=== PATIENT | female | born 1975 | race Caucasian/White ===

== ENCOUNTER 2016-03-12 21:27 | Emergency (ER) | payer BC, OTHER ==
[2016-03-12 21:41] VITALS: RESP 20
[2016-03-12] MEDS ORDERED: ONDANSETRON 4 MG/2 ML VIAL ONE (22:06)
[2016-03-12] MEDS ORDERED: NS 1,000 ML IV ONE ×2 (22:36→23:43)
--- NOTE | 2016-03-12 22:36 | EDPHY ---
H & P Time Seen by Provider: 03/12/16 22:09 HPI/ROS: CHIEF COMPLAINT: Vomiting, diarrhea HISTORY OF PRESENT ILLNESS: 41-year-old female presents to the emergency department by private vehicle complaining of multiple episodes of vomiting and diarrhea since 9 o'clock this morning. Patient states that she slept fine last night when she woke up she had coffee and was feeling normal and then around 9 o 'clock she began feeling sick and has vomited multiple times since that time. She also developed 3 or 4 episodes of watery diarrhea this afternoon. No blood in her emesis or her stool. Denies melena. No known ill contacts. No known contaminated food or water. No fevers or chills. No chest pain or difficulty breathing. No abdominal pain other than some mild abdominal cramping. No back pain. No urinary symptoms. REVIEW OF SYSTEMS: Constitutional: No fever, no chills. Eyes: No double or blurry vision. ENT: No sore throat. Respiratory: No cough, no shortness of breath. Cardiac: No chest pain. Gastrointestinal: As above Genitourinary: No dysuria. Musculoskeletal: No neck or back pain. Skin: No rashes. Neurological: No headache. Past Medical/Surgical History: Gestational diabetes now borderline diabetic, autoimmune disorder, depression, anxiety Social History: Smoking Status: Never smoked Physical Exam: General Appearance: Alert, no distress. 148/88, afebrile and nontoxic- appearing. 96% on room air. Eyes: Pupils equal and round. Extraocular motions are all intact. ENT: Mouth: Mucous membranes dry. Respiratory: No wheezing, rhonchi, or rales, lungs are clear to auscultation. Cardiovascular: Regular rate and rhythm. Gastrointestinal: Abdomen is soft and nontender, no masses, no rebound or guarding, bowel sounds normal. No CVA tenderness bilaterally. Neurological: Alert and oriented x 3, cranial nerves II through XII grossly intact Skin: Warm and dry, no rashes. Musculoskeletal: Nontender to palpate along the cervical, thoracic or lumbar spine. Neck is supple. Extremities: Full range of motion and no peripheral edema. Psychiatric: Patient is oriented X 3, there is no agitation. Constitutional: Initial Vital Signs Temperature (C) 36.8 C 03/12/16 21:39 Heart Rate 87 03/12/16 21:39 Respiratory Rate 20 03/12/16 21:39 Blood Pressure 148/88 H 03/12/16 21:39 O2 Sat (%) 96 03/12/16 21:39 O2 Delivery Mode Room Air Allergies/Adverse Reactions: Penicillins Allergy (Verified 03/12/16 21:39) Home Medications: Medication Instructions Recorded Effexor 03/12/16 Synthroid 03/12/16 Medical Decision Making ED Course/Re-evaluation: 41-year-old female presents to the emergency department with multiple episodes of vomiting and diarrhea. Patient had IV established and IV fluids were given. Patient was also given 4 mg of Zofran IV. Patient was also given 1 mg of Ativan IV. She was feeling much better. Upon discharge she was able to drink water. She was comfortable being discharged home. Her laboratory studies were reviewed and revealed no acute abnormality. This was reviewed with the patient. Differential Diagnosis: Including but not limited to viral gastroenteritis, dehydration, acute appendicitis, viral syndrome - Data Points Laboratory Results: Laboratory Results 03/12/16 22:30 03/12/16 22:30 03/12/16 22:30 WBC 9.91 H 10^3/uL (3.80-9.50) RBC 4.33 10^6/uL (4.18-5.33) Hgb 15.2 g/dL (12.6-16.3) Hct 42.6 % (38.0-47.0) MCV 98.4 fL (81.5-99.8) MCH 35.1 H pg (27.9-34.1) MCHC 35.7 g/dL (32.4-36.7) RDW 12.2 % (11.5-15.2) Plt Count 228 10^3/uL (150-400) MPV 9.4 fL (8.7-11.7) Neut % (Auto) 93.3 H % (39.3-74.2) Lymph % (Auto) 2.4 L % (15.0-45.0) [place] % (Auto) 3.1 L % (4.5-13.0) Eos % (Auto) 0.5 L % (0.6-7.6) Baso % (Auto) 0.3 % (0.3-1.7) Nucleat RBC Rel Count 0.0 % (0.0-0.2) Absolute Neuts (auto) 9.24 H 10^3/uL (1.70-6.50) Absolute Lymphs (auto) 0.24 L 10^3/uL (1.00-3.00) Absolute Monos (auto) 0.31 10^3/uL (0.30-0.80) Absolute Eos (auto) 0.05 10^3/uL (0.03-0.40) Absolute Basos (auto) 0.03 10^3/uL (0.02-0.10) Absolute Nucleated RBC 0.00 10^3/uL (0-0.01) Immature Gran % 0.4 % (0.0-1.1) Immature Gran # 0.04 10^3/uL (0.00-0.10) Sodium 142 mEq/L (134-144) Potassium 4.7 mEq/L (3.5-5.2) Chloride 105 mEq/L (97-110) Carbon Dioxide 24 mEq/l (22-31) Anion Gap 13 mEq/L (8-16) BUN 18 mg/dL (7-23) Creatinine 0.6 mg/dL (0.6-1.0) Estimated GFR > 60 Glucose 105 H mg/dL (70-100) Calcium 9.3 mg/dL (8.5-10.4) Beta HCG, Qual NEGATIVE Medications Given: Discontinued Medications Sodium Chloride (Ns) 1,000 mls @ 0 mls/hr IV ONCE ONE PRN Reason: Wide Open Stop: 03/12/16 22:37 Last Admin: 03/12/16 21:42 Dose: 1,000 mls Sodium Chloride (Ns) 1,000 mls @ 0 mls/hr IV ONCE ONE PRN Reason: Wide Open Stop: 03/12/16 23:44 Last Admin: 03/12/16 23:16 Dose: 1,000 mls Lorazepam (Ativan Injection) 1 mg IVP EDNOW ONE Stop: 03/12/16 23:17 Last Admin: 03/12/16 23:16 Dose: 1 mg Ondansetron HCl (Zofran) 4 mg IVP EDNOW ONE Stop: 03/12/16 22:38 Last Admin: 03/12/16 21:43 Dose: 4 mg Ondansetron HCl (Zofran Odt 4 Mg Prepack#2) 1 btl TAKEAIYANA MAYNARDW ONE Stop: 03/13/16 00:17 Last Admin: 03/13/16 00:32 Dose: 1 btl Departure - Departure Disposition: Home, Routine, Self-Care Clinical Impression: Gastroenteritis Condition: Good Instructions: Gastroenteritis (ED) Additional Instructions: Clear liquids and slowly advance diet as tolerated. Zofran as needed for nausea. Return to the emergency department if you develop recurring abdominal pain, vomiting, fever, or if you feel worse in any way. Referrals: Dalia Lares MD [Primary Care Provider] - 1 day, if not improved
[2016-03-12] MEDS ORDERED: ONDANSETRON 4 MG/2 ML VIAL IVP ONE (22:37)
[2016-03-12 22:41] LABS: % IMMATURE GRANULYOCYTES 0.4 % (0.0-1.1); ABSOLUTE IMMATURE GRANULOCYTES 0.04 10^3/uL (0.00-0.10); ADD DIFF? NO; ADD MORPH? NO; ADD SCAN? NO; ATYPICAL LYMPHOCYTE FLAG 0 (0-99); FRAGMENT RBC FLAG 0 (0-99); HEMATOCRIT 42.6 % (38.0-47.0); HEMOGLOBIN 15.2 g/dL (12.6-16.3); LEFT SHIFT FLG 10 (0-99); LIPEMIA HEMOLYSIS FLAG 90 (0-99); MEAN CELL HEMOGLOBIN 35.1 pg (27.9-34.1); MEAN CELL HEMOGLOBIN CONCENTR. 35.7 g/dL (32.4-36.7); MEAN CELL VOLUME 98.4 fL (81.5-99.8); MEAN PLATELET VOLUME 9.4 fL (8.7-11.7); PLATELET CLUMPS FLAG 0 (0-99); PLATELET COUNT 228 10^3/uL (150-400); RED BLOOD CELL COUNT 4.33 10^6/uL (4.18-5.33); RED CELL DISTRIBUTION WIDTH 12.2 % (11.5-15.2)
[2016-03-12 22:49] LABS: ANION GAP 13 mEq/L (8-16); CALCIUM 9.3 mg/dL (8.5-10.4); CARBON DIOXIDE 24 mEq/l (22-31); CHLORIDE 105 mEq/L (97-110); CREATININE 0.6 mg/dL (0.6-1.0); GLOMERULAR FILTRATION RATE > 60; GLUCOSE 105 mg/dL (70-100); POTASSIUM 4.7 mEq/L (3.5-5.2); SODIUM 142 mEq/L (134-144)
[2016-03-12] MEDS ORDERED: LORazepam 2 MG/ML INJ IVP ONE (23:16)
[2016-03-12] MEDS ORDERED: LORazepam 2 MG/ML INJ ONE (23:17)
[2016-03-13] MEDS ORDERED: ONDANSETRON 4MG PREPACK#2 BTL TAKEHOME ONE (00:16)
[2016-03-13 00:36] VITALS: BP 119/67; PULSE 85; TEMP 97.9; O2SAT 97
== END 2016-03-13 00:38 | disposition home or self-care (01) ==
DX: K52.9 Noninfective gastroenteritis and colitis, unspecified (principal)
CPT/HCPCS: 96374; J2405

== ENCOUNTER 2016-06-04 13:52 | Emergency (ER) | payer OTHER ==
[2016-06-04 14:23] VITALS: BP 125/62; PULSE 89; RESP 16; TEMP 98.4; O2SAT 97
[2016-06-04] MEDS ORDERED: AZITHROMYCIN 250 MG TAB PO ONE (15:02)
--- NOTE | 2016-06-04 15:06 | UCPHY ---
H & P Patient Type: Established Chief Complaint Nursing Narrative: fever/severe sore throat/swollen glands/LIU since Sunday (06/02/16) morning. Time Seen by Provider: 06/04/16 14:57 HPI/ROS: CHIEF COMPLAINT: Sore throat, fever HISTORY OF PRESENT ILLNESS: Patient is a healthy 41-year-old female who comes to the Urgent Care complaining of a sore throat as well as a fever for the last 3 days. She is planning to leave [place] and wanted to come and get checked out. None for family is sick. No runny nose, no cough, no shortness of breath. REVIEW OF SYSTEMS: Constitutional: denies: chills, fever, recent illness, recent injury EENTM: See HPI Respiratory: denies: cough, shortness of breath Cardiac: denies: chest pain, irregular heart rate, lightheadedness, palpitations Gastrointestinal/Abdominal: denies: abdominal pain, diarrhea, nausea, vomiting, blood streaked stools Genitourinary: denies: dysuria, frequency, hematuria, pain Musculoskeletal: denies: joint pain, muscle pain Skin: denies: lesions, rash, jaundice, bruising Neurological: denies: headache, numbness, paresthesia, tingling, dizziness, weakness Hematologic/Lymphatic: denies: blood clots, easy bleeding, easy bruising Immunologic/allergic: denies: HIV/AIDS, transplant EXAM: GENERAL: Well-appearing, well-nourished and in no acute distress. HEAD: Atraumatic, normocephalic. EYES: Pupils equal round and reactive to light, extraocular movements intact, sclera anicteric, conjunctiva are normal. ENT: erythematous pharynx with tonsils that her exudative in enlarged, TMs normal, nares patent, Moist mucous membranes. NECK: Normal range of motion, supple without lymphadenopathy or JVD. LUNGS: Breath sounds clear to auscultation bilaterally and equal. No wheezes rales or rhonchi. HEART: Regular rate and rhythm without murmurs, rubs or gallops. ABDOMEN: Soft, nontender, normoactive bowel sounds. No guarding, no rebound. No masses appreciated. BACK: No CVA tenderness, no spinal tenderness, step-offs or deformities EXTREMITIES: Normal range of motion, no pitting or edema. No clubbing or cyanosis. NEUROLOGICAL: Cranial nerves II through XII grossly intact. Normal speech, normal gait. 5/5 strength, normal movement in all extremities, normal sensation PSYCH: Normal mood, normal affect. SKIN: Warm, dry, normal turgor, no visible rashes or lesions. Source: Patient Exam Limitations: No limitations - Personal History LMP (Females 10-55): 15-21 Days Ago - Medical/Surgical History Hx Asthma: No Hx Chronic Respiratory Disease: No Hx Diabetes: Yes Hx Cardiac Disease: No Hx Renal Disease: No Hx Cirrhosis: No Hx Alcoholism: No Hx Splenectomy or Spleen Trauma: No Other PMH: none - Family History Significant Family History: No pertinent family hx - Social History Smoking Status: Never smoked Alcohol Use: Sober Drug Use: None Constitutional: Initial Vital Signs Temperature (C) 36.9 C 06/04/16 14:21 Heart Rate 89 06/04/16 14:21 Respiratory Rate 16 06/04/16 14:21 Blood Pressure 125/62 H 06/04/16 14:21 O2 Sat (%) 97 06/04/16 14:21 O2 Delivery Mode Room Air Allergies/Adverse Reactions: Penicillins Allergy (Verified 06/04/16 14:21) Home Medications: Medication Instructions Recorded Effexor 03/12/16 Synthroid 03/12/16 Cytomel 06/04/16 Medical Decision Making ED Course/Re-evaluation: The patient has symptoms consistent with strep throat. Her initial test is negative but it has not been very accurate this year. I will go ahead and treat her with azithromycin. She is grateful and agrees with this plan. She declines further workup or testing this time. Differential Diagnosis: Partial list of the Differential diagnosis considered include but were not limited to; strep throat, pharyngitis, upper respiratory tract infection and although unlikely based on the history and physical exam, I also considered mononucleosis, meningitis, sepsis, abscess. I discussed these differential diagnoses and the plan with the patient as well as the usual and expected course. The patient understands that the diagnosis is provisional and that in medicine we are not always correct and that further workup is often warranted. Usual and customary warnings were given. All of the patient's questions were answered. The patient was instructed to return to the emergency department should the symptoms at all worsen or return, otherwise to followup with the physician as we discussed. - Data Points Laboratory Results: 06/04/16 06/04/16 Unknown 14:20 Group A Strep Screen NEGATIVE (NEGATIVE) Group A Strep DNA Pending Departure - Departure Disposition: Home, Routine, Self-Care Clinical Impression: Pharyngitis Qualifiers: Pharyngitis/tonsillitis etiology: unspecified etiology Qualified Code(s): J02.9 - Acute pharyngitis, unspecified Condition: Fair Instructions: Pharyngitis (ED) Referrals: NONE *PRIMARY CARE P,. [Primary Care Provider] - As per Instructions Kavita Vines MD [Medical Doctor] - As per Instructions - PQRS PQRS Measurement: Not applicable
== END 2016-06-04 15:20 | disposition home or self-care (01) ==
LOC: CED 13:52
DX: J02.9 Acute pharyngitis, unspecified (principal)
CPT/HCPCS: 87880-PO; 99214-PO; G0463-PO

== ENCOUNTER → 2017-01-02 | Outpatient (CLI) | payer OTHER | LOC: CIMAGING 12:32 | PROVIDERS: ATTEND Obstetrics & Gynecology | DX: Z12.31 Encounter for screening mammogram for malignant neoplasm of breast (principal) | CPT/HCPCS: G0202 ==

== ENCOUNTER 2017-03-06 20:31 | Observation (INO) | payer OTHER ==
--- NOTE | 2017-03-06 21:06 | EDPHY ---
H & P Stated Complaint: nausea chills r lq abd pain Source: Patient Exam Limitations: No limitations - Personal History LMP (Females 10-55): Now Current Tetanus/Diphtheria Vaccine: Unsure Current Tetanus Diphtheria and Acellular Pertussis (TDAP): Unsure - Medical/Surgical History Hx Asthma: No Hx Chronic Respiratory Disease: No Hx Diabetes: No Hx Cardiac Disease: No Hx Renal Disease: No Hx Cirrhosis: No Hx Alcoholism: No Hx HIV/AIDS: No Hx Splenectomy or Spleen Trauma: No Other PMH: none - Social History Smoking Status: Never smoked Time Seen by Provider: 03/06/17 21:05 HPI/ROS: HPI: This is a 42-year-old female presents with Chief Complaint: nausea chills r lq abd pain Location: Right lower quadrant Quality: Pain Duration: 6 hr Signs and Symptoms: no fever, + nausea, no vomiting, no hematemesis, no blood in stool, no abdominal bloating, no diarrhea, no back pain, no urinary symptoms , no vaginal bleeding/discharge, no indigestion, no chest pain, no shortness of breath Timing: Sudden Severity: Severe Context: Patient is generally healthy, currently on menses day 2, presents with sudden onset of nausea, chills, and right lower quadrant abdominal pain approximately 3 hr prior to arrival that is constant, nonradiating in nature. She reports that she also feels bloated. Denies fever/diarrhea/vomiting/ urinary symptoms. She is concerned that she may have appendicitis. Patient is followed by [facility] and has yearly pelvic and Pap smears that are normal per patient. No prior history of ovarian cyst/torsion. Currently on menses. Modifying Factors: None Comment: ROS: see HPI Constitutional: No fever, no chills, no weight loss Eyes: No blurred vision Respiratory: No shortness of breath, no cough Cardiovascular: No chest pain, no palpitations Gastrointestinal: +nausea, no vomiting, no diarrhea, no hematemesis, no blood in stool Genitourinary: No dysuria, no blood in urine Extremities: No myalgias, no edema Neurologic: No weakness, no numbness Skin: No rashes, no petechiae Hematologic: No bruising, no bleeding MEDICAL/SURGICAL/SOCIAL HISTORY: Medical history: Generally healthy. Does not take any regular medications. Surgical history: Denies Social history: . CONSTITUTIONAL: Extremely pleasant well-appearing adult white female, awake and alert, no obvious distress HEENT: Atraumatic and normocephalic, PERRL, EOMI. Tympanic membranes clear. Oropharynx clear, no exudate and moist pink mucosa. Airway patent. No lymphadenopathy. No meningismus. Cardiovascular: Normal S1/S2, regular rate, regular rhythm, without murmur rub or gallop. PULMONARY/CHEST: Symmetrical and nontender. Clear to auscultation bilaterally. Good air movement. No accessory muscle usage. ABDOMEN: Soft, nondistended, moderate right lower quadrant tenderness, no rebound, +guarding, no peritoneal signs, no masses or organomegaly. No CVAT. Hyperactive bowel sounds x4. EXTREMITIES: 2/2 pulses, strength 5/5, no deformities, no clubbing, no cyanosis or edema. NEUROLOGICAL: no focal neuro deficits. GCS 15. SKIN: Warm and dry, no erythema. no rash. Good capillary refill. (Doris Burgos) Constitutional: Initial Vital Signs Temperature (C) 37.2 C 03/06/17 20:44 Heart Rate 81 03/06/17 20:44 Respiratory Rate 18 03/06/17 20:44 Blood Pressure 144/86 H 03/06/17 20:44 O2 Sat (%) 98 03/06/17 20:44 O2 Delivery Mode Simple Mask O2 (L/minute) 8 Allergies/Adverse Reactions: Penicillins Allergy (Verified 03/07/17 11:01) Rash Home Medications: Medication Instructions Recorded Levothyroxine [Synthroid 100 mcg 100 mcg PO DAILY #0 03/12/16 (*)] Venlafaxine Xr [Effexor Xr 75MG 150 mg PO DAILY #0 03/12/16 (*)] Liothyronine Sodium [Cytomel 5 mcg 10 mcg PO DAILY #0 06/04/16 (*)] Ibuprofen [Motrin (*)] 600 mg PO Q6H #40 tab 03/07/17 oxyCODONE/APAP 5/325 [Percocet 1 - 2 tab PO Q4 PRN #20 tab 03/07/17 5/325 (*)] Medical Decision Making ED Course/Re-evaluation: Labs, IV fluids, IV medication, CT abdomen and pelvis scan ordered NPO status. 1 L IV fluids and IV morphine 4 mg x2 given Vital signs reviewed upon arrival and unremarkable. Afebrile no systemic signs. 2138: Labs reviewed and showed a white count of 14 K, no lactic acidosis/acute kidney injury/electrolyte imbalance/transaminitis UA shows blood in RBC but no signs of infection 2220: Called by Radiology who advised that CT abdomen and pelvis scan shows acute appendicitis base has thickened wall measuring 11 mm. Penicillin allergy was simply a rash. IV Invanz given. Last meal was at lunch time. General surgery consult, Dr. Young, who kindly agrees to take patient to the OR for a laparoscopic appendectomy. This patient was seen under the supervision of my secondary supervising physician. I evaluated care for this patient independently. Discussed this patient with Dr. Amaro who did not see the patient. Patient's presentation, labs/imaging, treatment and plan of care were discussed with secondary supervising physician. (Doris Burgos) Differential Diagnosis: Abdominal pain in a female including but not limited to ovarian cyst, pelvic inflammatory disease, ovarian torsion, urinary tract infection, and appendicitis. (Doris Burgos) Other Provider: The patient was evaluated and managed by the Physician Air Drill Operator. I discussed the patient's presentation and course with the physician press assistant and agree with the evaluation. My co-signature indicates that I have reviewed this chart and I agree with the findings and plan of care as documented. I am the secondary supervising physician. (Zhane Amaro) - Data Points Laboratory Results: Laboratory Results 03/06/17 21:10 03/06/17 21:10 Medications Given: Discontinued Medications Bupivacaine HCl (Sensorcaine 0.5% Vial) Confirm Administered Dose 30 ml .ROUTE .STK-MED ONE Stop: 03/06/17 23:16 Last Admin: 03/07/17 00:38 Dose: 20 ml Diphenhydramine HCl (Benadryl) 25 - 50 mg PO Q3 PRN PRN Reason: ITCHING Stop: 09/03/17 02:54 Last Admin: 03/07/17 03:31 Dose: 50 mg Ertapenem (Invanz) 1 gm IM EDNOW ONE PRN Reason: Protocol Stop: 03/06/17 22:19 Last Admin: 03/06/17 22:32 Dose: 1 gm Sodium Chloride (Ns) 1,000 mls @ 0 mls/hr IV EDNOW ONE; Wide Open PRN Reason: Protocol Stop: 03/06/17 21:10 Last Admin: 03/06/17 22:09 Dose: 1,000 mls Sodium Chloride (Ns) 1,000 mls @ 0 mls/hr IV EDNOW ONE; Wide Open PRN Reason: Protocol Stop: 03/06/17 21:10 Last Admin: 03/06/17 22:09 Dose: 1,000 mls Dextrose/Sodium Chloride (D5w 1/2 Ns) 1,000 mls @ 100 mls/hr IV CONT MARY ALICE Stop: 09/03/17 00:54 Last Admin: 03/07/17 02:01 Dose: 1,000 mls Ketorolac Tromethamine (Toradol) 15 mg IVP Q6HRS MARY ALICE Stop: 03/12/17 00:54 Last Admin: 03/07/17 12:20 Dose: Not Given Morphine Sulfate (Morphine) 4 mg IVP EDNOW ONE Stop: 03/06/17 21:16 Last Admin: 03/06/17 22:09 Dose: 4 mg Morphine Sulfate (Morphine) 4 mg IVP EDNOW ONE Stop: 03/06/17 22:28 Last Admin: 03/06/17 22:28 Dose: 4 mg Ondansetron HCl (Zofran) 4 mg IVP EDNOW ONE Stop: 03/06/17 21:10 Last Admin: 03/06/17 22:08 Dose: 4 mg Oxycodone/Acetaminophen (Percocet 5/325) 1 - 2 tab PO Q4 PRN PRN Reason: Pain, Severe Able to Take PO Stop: 03/17/17 00:54 Last Admin: 03/07/17 12:22 Dose: 1 tab Departure - Departure Clinical Impression: Acute appendicitis with localized peritonitis Condition: Good
[2017-03-06] MEDS ORDERED: ONDANSETRON 4 MG/2 ML VIAL IVP ONE (21:09)
[2017-03-06] MEDS ORDERED: NS 1,000 ML IV ONE ×2 (21:09)
[2017-03-06 21:21] LABS: PLATELET COUNT 239 10^3/uL (150-400)
[2017-03-06] MEDS ORDERED: IOPAMIDOL (ISOVUE-300) 100 ML BTL ONE (21:50)
[2017-03-06] MEDS ORDERED: ERTAPENEM 1 GM VIAL IM ONE (22:18)
[2017-03-06] MEDS ORDERED: BUPIVACAINE 0.5% 30 ML SDV ONE (23:15)
--- NOTE | 2017-03-06 23:52 | PDANEPAE ---
ANE History of Present Illness 42 yo for lap appy ANE Past Medical History - Endocrine History Hx Diabetes: No ANE Review of Systems Review of Systems: - Exercise capacity METS (RN): 4 METS ANE Patient History - Allergies Allergies/Adverse Reactions: Penicillins Allergy (Verified 06/04/16 14:21) - Home Medications Home medications: home medication list seen and reviewed Home Medications: Effexor 03/12/16 [Last Taken Unknown] Synthroid 03/12/16 [Last Taken Unknown] Cytomel 06/04/16 [Last Taken Unknown] - Anes Hx Anes Hx: no prior problems - Smoking Hx Smoking Status: Never smoked ANE Labs/Vital Signs - Labs Result Diagrams: 03/06/17 21:10 03/06/17 21:10 - Vital Signs Blood Pressure: 137/92 Heart Rate: 92 Respiratory Rate: 16 O2 Sat (%): 95 Height: 5 ft 3 in Weight: 63.503 kg ANE Physical Exam - Airway Neck exam: FROM Mallampati Score: Class 2 Mouth exam: normal dental/mouth exam - Pulmonary Pulmonary: no respiratory distress - Cardiovascular Cardiovascular: regular rate and rhythym - ASA Status ASA Status: II ANE Anesthesia Plan Anesthesia Plan: general endotracheal anesthesia
[2017-03-06] MEDS ORDERED: PROPOFOL/EMULSION 500 MG/50 ML BOTTLE IV ONE (23:55)
[2017-03-06] MEDS ORDERED: fentaNYL 100 MCG/2 ML INJ ONE (23:55)
[2017-03-07] MEDS ORDERED: ONDANSETRON 4 MG/2 ML VIAL ONE (00:10)
[2017-03-07] MEDS ORDERED: SUGAMMADEX SODIUM 200 MG/2 ML VIAL IVP ONE (00:10)
[2017-03-07] MEDS ORDERED: ROCURONIUM 50 MG/5 ML VIAL ONE (00:10)
[2017-03-07] MEDS ORDERED: HYDROCODONE/APAP 5/325 TAB PO PRN (00:25)
[2017-03-07] MEDS ORDERED: ONDANSETRON 4 MG/2 ML VIAL IVP PRN ×2 (00:25→00:55)
[2017-03-07] MEDS ORDERED: fentaNYL 100 MCG/2 ML INJ IVP PRN (00:25)
[2017-03-07] MEDS ORDERED: NALOXONE HCL 0.4 MG/ML INJ IVP PRN (00:25)
[2017-03-07] MEDS ORDERED: OXYCODONE/APAP 5/325 TAB PO PRN ×2 (00:25→00:55)
[2017-03-07] MEDS ORDERED: fentaNYL 100 MCG/2 ML INJ ONE (00:27)
--- NOTE | 2017-03-07 00:50 | POSTANESTH ---
Post Anesthetic Evaluation Cardiovascular Status: Normal, Stable Respiratory Status: Normal, Stable Level of Consciousness/Mental Status: Can Participate in Eval Pain Control: Adequate, Prn Tx Ordered Nausea/Vomiting Control: Adequate, Prn Tx Ordered Complications Possibly Related to Anesthesia: None Noted
[2017-03-07] MEDS ORDERED: HYDROmorphone HCL/NS/PF 0.4 MG/2 ML SYR IVP PRN (00:55)
[2017-03-07] MEDS ORDERED: D5W 1/2 NS 1,000 ML IV SCH (00:55)
[2017-03-07] MEDS ORDERED: ONDANSETRON DISINTEGRATING 4 MG TAB PO PRN (00:55)
--- NOTE | 2017-03-07 00:59 | POSTOPPROG ---
Post Op Note Date of Operation: 03/07/17 Surgeon: Kosta Young Anesthesiologist: RANGEL Anesthesia: GET(General Endotracheal) Pre-op Diagnosis: ACUTE APPENDICITIS Post-op Diagnosis: SAME Indication: PAIN Procedure: LAP APPY Findings: ACUTE SUPPURATIVE NON PERFORATED APPENDICITIS Inf/Abcess present in the surg proc area at time of surgery?: Yes Depth: Organ Space EBL: Minimal Complications: NONE Specimen(s): APPENDIX
--- NOTE | 2017-03-07 01:02 | PDGENHP ---
History & Physical Chief Complaint: RIGHT LOWER QUADRANT PAIN History of Present Illness: 8 HOURS OF RIGHT LOWER QUADRANT PAIN WITH ASSOCIATED NAUSEA BUT NO VOMITING. PAIN WORSE WITH MOVEMENT. NO PRIOR ABDOMINAL PAIN EXCEPT FOR [address] SCANS POSITIVE FOR APPENDICITIS. WBC SLIGHTLY ELEVATED. ADMIT FOR LAP APPY RISKS AND OPTIONS FULLY DISCUSSED Pertinent Past, Social, Family History: PMH: 3 C SECTIONS/NO OTHER MAJOR SURGERIES/NO OTHER MAJOR HOSPITALIZATIONS. MEDICATIONS: AN ANTIDEPRESSANT AND THYROID. ALLERGIES: QUESTIONABLE PENICILLIN. FAMILY HISTORY: POSITIVE FOR OVARIAN CANCER. REVIEW OF SYSTEMS:-10 POINT REVIEW SPECIFICALLY SHE DOES NOT SMOKE OR HAVE CARDIAC ISSUES Relevant Physical Exam: GENERAL: HEALTHY 42-YEAR-OLD FEMALE NO ACUTE DISTRESS, AFEBRILE. HEENT: NONICTERIC WITHOUT ADENOPATHY NECK IS SUPPLE NO ORAL LESIONS , NO THYROMEGALY. CHEST CLEAR AND SYMMETRIC. COR REGULAR RHYTHM. ABDOMEN SOFT SLIGHTLY DISTENDED, VERY TENDER IN THE RIGHT LOWER QUADRANT WITH GUARDING. EXTREMITIES FULL RANGE OF MOTION FULL PULSES Cardiorespiratory Assessment: IMPRESSION ACUTE APPENDICITIS/RISKS AND OPTIONS FULLY DISCUSSED AND SHE WISHED TO PROCEED WITH SURGERY. PLAN LAP APPY
[2017-03-07] MEDS: KETOROLAC 15 MG/1 ML SDV IVP SCH ×3 (02:01→12:20)
--- NOTE | 2017-03-07 02:06 | GOP ---
[f rep st] OPERATIVE REPORT DATE OF OPERATION: 03/07/2017 SURGEON: Kosta Young MD PREOPERATIVE DIAGNOSIS: Acute appendicitis. POSTOPERATIVE DIAGNOSIS: Acute appendicitis. PROCEDURE PERFORMED: Laparoscopic appendectomy. FINDINGS: Patient was found to have acute suppurative nonperforated appendicitis. DESCRIPTION OF PROCEDURE: The patient was taken to the operating room where she received satisfactor y general endotracheal anesthesia with Dr. Quick. She was prepped and draped in the usual sterile fashion in the supine position. An infraumbilical incision was made. A Veress needle inserted. Pn eumoperitoneum was established. Trocar introduced. Laparoscope introduced. Good visualization was obtained. Two other trocars were placed in the lower abdomen under direct vision. Appendix was elev ated up from a retroileal position. The mesoappendix was thickened and inflamed; it was divided with the Harmonic Scalpel until the appendix was skeletonized at the juncture with the cecum. It was the n divided at that point with an Endo-GERMAINE stapler, placed in a specimen bag and extracted through the upper midline port site. Hemostasis was assured with electrocautery and Harmonic Scalpel. There was no significant fluid in the abdomen. Trocars were removed under direct vision. Trocar sites were c losed with 0 Vicryl for the fascia, 4-0 Monocryl subcuticular stitch for the skin. All layers infilt rated with 0.5% Marcaine. Blood loss was negligible. There were no complications. /[id number]/MODL
[2017-03-07] MEDS ORDERED: diphenhydrAMINE 25 MG CAP PO PRN (02:55)
[2017-03-07 03:33] VITALS: O2SAT 94
--- NOTE | 2017-03-07 08:11 | SOAPPROG ---
SOAP Progress Note Assessment/Plan: Assessment/Plan: 42 Y F s/p lap appy, POD#0. Doing well. Regular diet. D/c to home later today if continues to do well. Discussed d/c instructions and limitations. S: pain controlled. no n/v. just woke up--not quite sure how she feels yet. O: alert, nad mmm no wob abd soft inc cdi 03/07/17 08:10 Objective: Vital Signs Temp Pulse Resp BP Pulse Ox 36.8 C 47 L 14 106/64 94 03/07/17 04:35 03/07/17 04:35 03/07/17 04:35 03/07/17 04:35 03/07/17 04:35 03/06/17 03/07/17 03/08/17 05:59 05:59 05:59 Intake Total 381 Balance 381 ICD10 Worksheet Patient Problems: Problems Problem Status Onset Acute appendicitis with localized peritonitis Acute
[2017-03-07 09:19] VITALS: BP 101/59; PULSE 65; RESP 16; TEMP 98.6
--- NOTE | 2017-03-07 10:53 | ASMTCMCOM ---
CM Note CM Note Notes: Pt admitted for lap appy and will DC today with no needs. Date Signed: 03/07/2017 10:53 AM Electronically Signed By:Polly Mcfadden LCSW
--- NOTE | 2017-03-07 14:58 | ASDISCHSUM ---
Discharge Information Plan Status: Medically Cleared to Leave: Discharge Date:03/07/2017 01:35 PM CM D/C Disposition: ADT D/C Disposition:Home, Routine, Self-Care Projected Discharge Date:03/07/2017 01:35 PM Transportation at D/C: Discharge Delay Reason: Follow-Up Date:03/07/2017 01:35 PM Discharge Slot: Final Diagnosis: Placement Information Patient Contact Information Contact Name:HANNAH Relationship: Address:[address] City:[place] Alternate Phone: State/Zip Code:[place] [address] Email: Financial Information Financial Class:HMO and PPO Plans Primary Plan Desc:[employer]IM[employer] PPO POS HMO SIG ADM Primary Plan Number:[id number] Secondary Plan Desc: Secondary Plan Number: Assessment Information [facility] CM Progress Note CM Note CM Note Notes: Pt admitted for lap appy and will DC today with no needs. Date Signed: 03/07/2017 10:53 AM Electronically Signed By:Polly Mcfadden LCSW Intervention Information
== END 2017-03-07 13:35 | disposition home or self-care (01) ==
LOC: FSGY 23:30 → F1N 03-07 01:11
PROVIDERS: ADMIT Surgery; ATTEND Surgery
PROC: 0DTJ4ZZ Resection of Appendix, Percutaneous Endoscopic Approach (ICD-10-PCS; principal; 2017-03-07)
DX: K35.80 Unspecified acute appendicitis (principal); F32.9 Major depressive disorder, single episode, unspecified; Z80.41 Family history of malignant neoplasm of ovary
CPT/HCPCS: 44970; 74177; G0378; 96374; J1335; J1885; J2405; J2704; J3010; Q9967

== ENCOUNTER → 2018-02-07 | Outpatient (CLI) | payer OTHER | LOC: FIMAGING 10:16 | PROVIDERS: ATTEND Obstetrics & Gynecology | DX: Z12.31 Encounter for screening mammogram for malignant neoplasm of breast (principal) ==

== ENCOUNTER → 2018-02-15 | Outpatient (CLI) | payer OTHER | LOC: FIMAGING 12:23 | PROVIDERS: ATTEND Obstetrics & Gynecology | DX: R92.8 Other abnormal and inconclusive findings on diagnostic imaging of breast (principal) ==